=== PATIENT | male | born 1955 | race Caucasian/White ===

== ENCOUNTER 2017-10-18 15:19 | Emergency (ER) | payer BC ==
[~2017-10-18] VITALS: Ht 175.3 cm; Wt 94.8 kg
[2017-10-18 15:32] VITALS: BP 136/96
== END 2017-10-18 20:06 | disposition left against medical advice (07) ==
LOC: ER 15:19
DX: R22.0 Localized swelling, mass and lump, head (principal); Z53.21 Procedure and treatment not carried out due to patient leaving prior to being seen by health care provider